=== PATIENT | female | born 1995 | race Caucasian/White ===

== ENCOUNTER 2021-06-23 19:04 | Emergency (ER) | payer OTHER ==
[~2021-06-23] VITALS: Ht 152.4 cm; Wt 99.0 kg
[2021-06-24 00:18] LABS: CLARITY URINE CLEAR (CLEAR); COLOR URINE YELLOW (YELLOW); KETONES URINE NEGATIVE (NEGATIVE); LEUKOCYTE ESTERASE URINE TRACE (NEGATIVE); NITRITE URINE NEGATIVE (NEGATIVE); OCCULT BLOOD URINE 3+ (NEGATIVE); PROTEIN URINE 1+ (NEGATIVE); SPECIFIC GRAVITY URINE 1.022 (1.005-1.030)
[2021-06-24 00:29] LABS: BASOPHILS % 0.9 % (0.0-2.0); EOSINOPHILS % 2.2 % (0.0-5.0); HEMATOCRIT. 37.4 % (36.0-48.0); HEMOGLOBIN. 12.1 g/dL (12.0-16.0); LYMPHOCYTES % 33.9 % (20.0-50.0); MEAN CORPUSCULAR HEMOGLOBIN 25.8 pg (28.0-32.0); MEAN CORPUSCULAR VOLUME 79.7 fL (81.0-99.0); MEAN PLATELET VOLUME 9.6 fl (7.4-10.4); MONOCYTES % 5.5 % (2.0-8.0); NEUTROPHILS % 57.5 % (40.0-76.0); PLATELET 284 x1000/uL (130-400); RED BLOOD CELL COUNT 4.69 mill/uL (4.2-5.4); RED CELL DISTRIBUTION WIDTH 14.2 % (11.6-14.6)
[2021-06-24 00:38] LABS: CHLORIDE 106 mEq/L (98-107)
[2021-06-24 00:46] LABS: B-HCG QUANTITATIVE < 1 mIU/mL (<3)
[2021-06-24] MEDS ORDERED: IBUPROFEN 600MG TABLET PO ONE (02:00)
[2021-06-24] MEDS ORDERED: ONDANSETRON 4MG ODT PO ONE (02:00)
[2021-06-24 03:00] VITALS: BP 137/75
== END 2021-06-24 03:24 | disposition home or self-care (01) ==
LOC: ER 19:04
DX: R10.2 Pelvic and perineal pain (principal); N93.9 Abnormal uterine and vaginal bleeding, unspecified; D64.9 Anemia, unspecified; N88.8 Other specified noninflammatory disorders of cervix uteri
CPT/HCPCS: 36415; 76830; 76856; 80053; 81003; 84702; 85025; 86850; 86900; 86901; 99284; Q0162

== ENCOUNTER 2022-10-21 09:56 | Emergency (ER) | payer MEDICARE, OTHER ==
[~2022-10-21] VITALS: Ht 152.4 cm; Wt 100.0 kg
[2022-10-21 10:10] VITALS: O2SAT 98
[2022-10-21] MEDS ORDERED: PREDNISONE 20MG TABLET PO ONE (11:15)
[2022-10-21] MEDS ORDERED: P20 PO (11:20)
[2022-10-21 11:55] VITALS: BP 128/60; PULSE 82; RESP 16; TEMP 98.6
== END 2022-10-21 12:00 | disposition home or self-care (01) ==
LOC: ER 09:56
DX: J06.9 Acute upper respiratory infection, unspecified (principal)
CPT/HCPCS: 99283; 71045; J7512